=== PATIENT | female | born 1960 ===

== ENCOUNTER 2018-04-13 12:53 | Emergency (ER) | payer MEDICAID ==
[2018-04-13 13:00] VITALS: BP 154/89; PULSE 97; TEMP 98.4; O2SAT 100
--- NOTE | 2018-04-13 14:22 | C.PDOC ---
History Of Present Illness 57 y/o female comes in for evaluation of right > left eye irritation, associated with FB sensation in the right eye, gradually developing over the past week. She denies any direct injury to the eye. After rubbing the eye, the pain worsened. Patient does wear contact lenses. She now describes worsening right eye pain and photophobia since yesterday. Denies any headache, dizziness, floaters, eye discharge, or other complaints. Time Seen by Provider: 04/13/18 13:43 Chief Complaint (Nursing): Eye Problem History Per: Patient History/Exam Limitations: no limitations Onset/Duration Of Symptoms: Days Current Symptoms Are (Timing): Still Present Past Medical History Reviewed: Historical Data, Nursing Documentation, Vital Signs Vital Signs: Last Vital Signs Temp 98.4 F 04/13/18 12:57 Pulse 97 H 04/13/18 12:57 Resp 20 04/13/18 14:37 BP 154/89 H 04/13/18 12:57 Pulse Ox 100 04/13/18 16:01 - Medical History PMH: Asthma, Depression, Hypercholesterolemia, Schizophrenia - [facility] Procedures TETANUS TOXOID ADMINIST (02/05/15) Family History: States: Unknown Family Hx - Social History Hx Tobacco Use: Yes Hx Alcohol Use: Yes Hx Substance Use: No - Immunization History Hx Tetanus Toxoid Vaccination: No Hx Influenza Vaccination: No (REFUSED) Hx Pneumococcal Vaccination: No (REFUSED) Review Of Systems Except As Marked, All Systems Reviewed And Found Negative. Eyes: Positive for: Pain, Redness, Other (R eye FB sensation) ENT: Negative for: Ear Discharge, Nose Discharge, Mouth Pain, Throat Pain Cardiovascular: Negative for: Chest Pain Respiratory: Negative for: Cough, Shortness of Breath, Wheezing Gastrointestinal: Negative for: Nausea, Vomiting, Abdominal Pain, Diarrhea Musculoskeletal: Negative for: Neck Pain, Back Pain Neurological: Positive for: Other (Photophobia). Negative for: Weakness, Numbness, Headache, Dizziness Physical Exam - Physical Exam Appears: Well, Non-toxic, No Acute Distress Skin: Normal Color, Warm Head: Normacephalic Eye(s): bilateral: PERRL, EOMI (no pain or limitation on extraocular movement), right: Other (mild conjunctival injection, small fluoresceine uptake at 6 oc' clock, no corneal FB. No perorbital edema or erythema) Ear(s): Bilateral: Normal Nose: No Flaring, No Discharge, No Deformity, No Tenderness Oral Mucosa: Moist Throat: No Erythema, No Drooling Neck: No Midline Cervical Tenderness, No Paracervical Tenderness, No Step Off Deformity, Supple Neurological/Psych: Oriented x3, Normal Speech, Normal Motor, Normal Sensation, Normal Reflexes ED Course And Treatment O2 Sat by Pulse Oximetry: 100 (RA) Pulse Ox Interpretation: Normal Progress Note: On re-eval, pt is afebrile, hemodynamicalys table. NOn-toxic. Right eye: exam c/w mild fluoresceine uptake, no evidence of corneal FB. no pain or limitation on extraocular movement. No periorbital edema or erythema. VA: R20/100, L20/100, B/L 20/70 w/o correction. ENT: no acute findings. neck; Supple. Neuorlogicaly intact. Pt advise, eye patch applied. Pt ref. to f/u with Opht in 1-2 days for re-eavl. return to ED if any worsening or new changes. Disposition Counseled Patient/Family Regarding: Diagnosis, Need For Followup, Rx Given - Disposition Referrals: Rocky Simental MD [Staff Provider] - Disposition: HOME/ ROUTINE Disposition Time: 14:21 Condition: STABLE Additional Instructions: Eye patch for 1 week Take medication as prescribed Follow up with Ophthalmology in 2-3 days for re-evaluation. Return if any new changes. Prescriptions: Neomycin/Polymyxin/Dexamethaso [Dexamethasone/Neomycin/Polymyxin 5 Ml] 1 drop BOTHEYES TID #1 bottle Instructions: Corneal Abrasion Forms: [facility] (Indonesian), Work Excuse - POA Present On Arrival: None - Clinical Impression Clinical Impression: Corneal abrasion - PA / BOOM MASTER / Resident Statement MD/DO has reviewed & agrees with the documentation as recorded. - Scribe Statement The provider has reviewed the documentation as recorded by the Scribe (Chrissie Murillo) All medical record entries made by the Scribe were at my direction and personally dictated by me. I have reviewed the chart and agree that the record accurately reflects my personal performance of the history, physical exam, medical decision making, and the department course for this patient. I have also personally directed, reviewed, and agree with the discharge instructions and disposition.
[2018-04-13 14:38] VITALS: RESP 20
== END 2018-04-13 14:37 | disposition home or self-care (01) ==
LOC: C.ER 12:53
DX: S05.01XA Injury of conjunctiva and corneal abrasion without foreign body, right eye, initial encounter (principal); X58.XXXA Exposure to other specified factors, initial encounter

== ENCOUNTER 2018-06-12 20:59 | Emergency (ER) | payer MEDICAID ==
[2018-06-12] MEDS ORDERED: Sodium Chloride 0.9% 1,000 ML IV ONE (21:08)
[2018-06-12] MEDS ORDERED: DiphenhydrAMINE 50 mg/ml Inj IVP STA (21:09)
[2018-06-12] MEDS ORDERED: DiphenhydrAMINE 50 mg/ml Inj ONE (21:12)
[2018-06-12 21:13] VITALS: TEMP 99.1
--- NOTE | 2018-06-12 21:16 | C.PDOC ---
History Of Present Illness 58 y/o female BIB EMS complaining of sever itch and burning of scalp for four days ago. Patient states the itch began after using hair dye. Post hair dye, she experienced facial edema and swelling of both eyelids. She denies any throat welling or difficulty breathing Time Seen by Provider: 06/12/18 21:04 Chief Complaint (Nursing): Allergic Reaction History/Exam Limitations: no limitations Onset/Duration Of Symptoms: Days (4 days ago) Current Symptoms Are (Timing): Still Present Associated Symptoms: Swelling (facial edema and eyelid swelling ) Past Medical History Vital Signs: Last Vital Signs Temp 99.1 F 06/12/18 21:07 Pulse 88 06/12/18 22:15 Resp 14 06/12/18 22:15 BP 158/84 H 06/12/18 22:15 Pulse Ox 96 06/12/18 23:03 - Medical History PMH: Asthma, Depression, Hypercholesterolemia, Schizophrenia - [facility] Procedures TETANUS TOXOID ADMINIST (02/05/15) Family History: States: Unknown Family Hx - Social History Hx Tobacco Use: Yes Hx Alcohol Use: Yes Hx Substance Use: No - Immunization History Hx Tetanus Toxoid Vaccination: No Hx Influenza Vaccination: No (REFUSED) Hx Pneumococcal Vaccination: No (REFUSED) Review Of Systems Except As Marked, All Systems Reviewed And Found Negative. Constitutional: Negative for: Fever Eyes: Positive for: Eyelid Inflammation Cardiovascular: Positive for: Edema (facial edema) Respiratory: Negative for: Shortness of Breath, Wheezing, Other (throat swelling ) Skin: Negative for: Rash Physical Exam - Physical Exam Appears: Non-toxic, No Acute Distress Skin: Other (facial edema ) Head: Atraumatic, Normacephalic Eye(s): bilateral: PERRL, EOMI, Eyelid Inflammation Ear(s): Bilateral: Normal Nose: Normal Oral Mucosa: Moist Tongue: No Swelling Lips: No Swelling Throat: Normal (no swelling ) Neck: Normal ROM, Supple Chest: Symmetrical Cardiovascular: Rhythm Regular Respiratory: Normal Breath Sounds, No Rales, No Rhonchi, No Wheezing Gastrointestinal/Abdominal: Normal Exam, Soft, No Tenderness Extremity: Normal ROM Extremity: Bilateral: Atraumatic Pulses: Left Dorsalis Pedis: Normal, Right Dorsalis Pedis: Normal Neurological/Psych: Oriented x3 Gait: Steady ED Course And Treatment O2 Sat by Pulse Oximetry: 96 (RA) Pulse Ox Interpretation: Normal Medical Decision Making Medical Decision Making: Impression: 58 y/o female with facial edema, swelling of both eyelids, and severe itch/ burning of scalp Plan: --IV fluids --Benadryl 50 mg IV --Pepcid 20 mg IV -- SOLU-Medrol 125 mg IV 23:02 Reevaluation: Patient feels better and swelling in both eyes has reduced significantly. Disposition Doctor Will See Patient In The: Hospital Counseled Patient/Family Regarding: Diagnosis - Disposition Referrals: [facility] [Outside] Disposition: HOME/ ROUTINE Disposition Time: 01:33 Condition: IMPROVED Prescriptions: DiphenhydrAMINE [Benadryl] 25 mg PO Q6 #20 cap Famotidine [Pepcid] 20 mg PO BID #20 tab Methylprednisolone [Medrol Dose Pack (21 tabs)] 4 mg PO DAILY #21 mg Instructions: Brodyes (DC) Forms: [facility] (Japanese), Gen Discharge Inst Vietnamese Print Language: ARMENIAN - POA Present On Arrival: None - Clinical Impression Clinical Impression: Allergic reaction - Scribe Statement The provider has reviewed the documentation as recorded by the Scribe (Emmanuelle Morrissey) Provider Attestation: All medical record entries made by the Scribe were at my direction and personally dictated by me. I have reviewed the chart and agree that the record accurately reflects my personal performance of the history, physical exam, medical decision making, and the department course for this patient. I have also personally directed, reviewed, and agree with the discharge instructions and disposition.
[2018-06-12 22:16] VITALS: PULSE 88; RESP 14
[2018-06-12 22:17] VITALS: BP 158/84
[2018-06-12 23:03] VITALS: O2SAT 96
== END 2018-06-13 01:58 | disposition home or self-care (01) ==
LOC: C.ER 20:59
DX: T78.40XA Allergy, unspecified, initial encounter (principal)
CPT/HCPCS: 96361; 96374; 96375; 99284; J1200; J2930; J7030

== ENCOUNTER 2018-06-13 16:00 | Emergency (ER) | payer MEDICAID ==
[2018-06-13 16:07] VITALS: BMI 14.6
[2018-06-13] MEDS ORDERED: Iodixanol 320 mg/ml 150 ml Bottle IV ONE (16:19)
--- NOTE | 2018-06-13 16:27 | CT ---
Date of service: 06/13/2018 PROCEDURE: CT HEAD WITHOUT CONTRAST. HISTORY: Code Stroke COMPARISON: None available. TECHNIQUE: Axial computed tomography images were obtained through the head/brain without intravenous contrast. Radiation dose: Total exam DLP = 742.27 mGy-cm. This CT exam was performed using one or more of the following dose reduction techniques: Automated exposure control, adjustment of the mA and/or kV according to patient size, and/or use of iterative reconstruction technique. FINDINGS: HEMORRHAGE: No intracranial hemorrhage. BRAIN: There is focal low-attenuation in the left posterior frontal and anterior parietal lobes. There is no mass, mass effect or abnormal extra-axial fluid collection. VENTRICLES: There is mild age-related global parenchymal volume loss and proportionate enlargement of the ventricles and cortical sulci. CALVARIUM: The skull base and calvarium are normal. PARANASAL SINUSES: Predominantly clear. MASTOID AIR CELLS: Predominantly clear. OTHER FINDINGS: None. IMPRESSION: 1. Findings are concerning for acute left MCA territory infarction involving the left posterior frontal an anti parietal lobes. 2. Mild age-related global parenchymal volume loss. Critical findings were discussed with Dr. Dwain Lemus on 06/13/2018 and 4:20 p.m.
--- NOTE | 2018-06-13 16:27 | C.PDOC ---
History Of Present Illness 58 y/o female brought in by ambulance for change in mental status, right-sided facial droop, right arm flaccid. Patient was evaluated here last night for contact dermatitis due to a hair dye and irritation of the scalp, and also had severe edema to bilateral eyes at that time. She was discharged home around 1: 30 AM. Last seen well by her son at 11:00am. Patient was ambulatory then without facial droop. At that time she was complaining of a strange sensation on the right arm and decreased vision to left eye as per son. At approximately 1 :00pm the patient called a friend, claiming she did not feel well, but was incoherent on the phone with slurred speech. On arrival patient has severe right facial droop not involving the forehead, with preferential right gaze, and right arm flaccid. Patient was immediately evaluated and Code Stroke initiated. Time Seen by Provider: 06/13/18 16:15 Chief Complaint (Nursing): Weakness/Neurological Deficit History Per: Patient History/Exam Limitations: clinical condition (aphasic on arrival) Onset/Duration Of Symptoms: Hrs Current Symptoms Are (Timing): Still Present Past Medical History Vital Signs: Last Vital Signs Temp Pulse 69 06/13/18 18:10 Resp 26 H 06/13/18 18:10 BP 169/88 H 06/13/18 18:10 Pulse Ox 99 06/13/18 18:34 - Medical History PMH: Asthma, Depression, Hypercholesterolemia, Schizophrenia - [facility] Procedures TETANUS TOXOID ADMINIST (02/05/15) Family History: States: Unknown Family Hx - Social History Hx Tobacco Use: Yes Hx Alcohol Use: Yes Hx Substance Use: No - Immunization History Hx Tetanus Toxoid Vaccination: No Hx Influenza Vaccination: No (REFUSED) Hx Pneumococcal Vaccination: No (REFUSED) Review Of Systems Review Of Systems: ROS cannot be obtained secondary to pt's inabilty to answer questions. Neurological: Positive for: Weakness (right arm), Change in Speech (aphasia), Other (right facial droop) Physical Exam - Physical Exam Appears: Other (Awake, not answering questions) Skin: Normal Color, Warm, No Rash Head: Normacephalic, Other (Severe right facial droop) Eye(s): bilateral: PERRL, EOMI, Other (preferential right gaze noted) Oral Mucosa: Moist Neck: Normal ROM Chest: Symmetrical Cardiovascular: Rhythm Regular, No Murmur Respiratory: Normal Breath Sounds, No Rales, No Rhonchi, No Wheezing Gastrointestinal/Abdominal: Soft, No Tenderness, No Distention Back: Normal Inspection Extremity: Bilateral: Normal Color And Temperature Pulses: Left Radial: Normal, Right Radial: Normal Neurological/Psych: No Normal Motor (RLE 3/5 strength, RUE flaccid), Expressive Aphasia, Receptive Aphasia, Other (Garbled speech, echolalia) Gait: Unable To Assess Other Neurological Findings: Facial Palsy, No Forehead Sparing ED Course And Treatment - Laboratory Results Result Diagrams: 06/13/18 16:50 06/13/18 16:50 Lab Interpretation: Normal ECG: Interpreted By Me, Viewed By Me ECG Rhythm: Sinus Rhythm Rate From EC O2 Sat by Pulse Oximetry: 99 Pulse Ox Interpretation: Normal - Radiology CXR: Interpreted by Me CXR Interpretation: Yes: No Acute Disease - CT Scan/US CT Head Other Rad Studies (CT/US): Read By Radiologist, Radiology Report Reviewed CT/US Interpretation: IMPRESSION: 1. Findings are concerning for acute left MCA territory infarction involving the left posterior frontal an anti parietal lobes. 2. Mild age-related global parenchymal volume loss. Critical findings were discussed with Dr. Dwain Lemus on 06/13/2018 and 4:20 p.m. CTA Neck/Head Other Rad Studies (CT/US): Read By Radiologist, Radiology Report Reviewed CT/US Interpretation: IMPRESSION: 1. Complete occlusion of the cervical segment of the left internal carotid artery from its origin to the skullbase. 2. Complete occlusion of majority of the petrous segment of the left internal carotid artery . Mild flow related enhancement distally with asymmetric small caliber of the left cavernous carotid and supraclinoid segments of the internal carotid artery. 3. Mild asymmetric small caliber of the left M1 segment with attenuation of distal branches. 4. No evidence of hemodynamically significant stenosis in the right internal carotid artery. 5. Patent bilateral vertebral arteries. Reevaluation Time: 18:16 (mild improvement in speech, eye direction. Remains R arm flaccid) Reassessment Condition: Improved Critical Care Time - Critical Care Note Total Time (in mins): 90 Documented critical care: time excludes all time spent performing seperately billable procedures. NIHSS Stroke Scale 2 - Date/Time Evaluation Performed Date Performed: 06/13/18 Time Performed: 16:00 - How Severe is the Stroke Level of Consciousness: 0=Alert LOC to Questions: 2=Neither correct LOC to commands: 2=Neither correct Best Gaze: 1=Partial gaze palsy Visual: 0=No visual loss Facial: 3=Complete unilateral paralysis Motor Arm - Left: 0=No drift Motor Arm - Right: 4=No movement Motor Leg - Left: 0=No drift Motor Leg - Right: 1=Drift before 5 sec Limb Ataxia: 0=Absent Sensory: 0=Normal Best Language: 3=Mute Dysarthia: 2=Severe, near unintelligible or worse Extinction & Inattention (Neglect): 0=Normal, no object Score: 18 rTPA Inclusion/Exclusion - Refusal of Treatment Patient Refused Treatment: No - Inclusion Criteria for Altepase Patient is 18 years or Older: Yes The Clinical Diagnosis of Ischemic Stroke That is Causing a Potentially Disabling Neurological Deficit: Yes Time of Onset is Well Established to be Less Than 270 Minute Before Treatment Would Begin: No Risk/Benefit Discussed With Patient/Family Member Present: No Medical Decision Making Medical Decision Makin: Code Stroke called 1615: d/w Radiology; Code Stroke CT: suspect L MCA CVA 1630: d/w Radiology; Code Stroke CTA: L Internal Carotid Artery Occlusion (LICA) , good collateral flow [place] [facility] [place] 1645: d/w Dr Thorpe: Neurology- 1700: d/w Dr. Brown- Neurology- Agrees with ASA CO, Integralin IV, permissive HTN, IV fluid bolus, will arrange acceptance for transfer 1715: Pt to be transferred to [facility] 1805: d/w [facility]-accepted for transfer s/s of L MCA CVA but LMCA appears to have good flow, LICA occluded. Neurointervention @ [facility] Disposition Doctor Will See Patient In The: Hospital Counseled Patient/Family Regarding: Studies Performed, Diagnosis - Disposition Disposition: Trans to Other Acute Care Hosp Disposition Time: 18:20 Condition: FAIR Forms: [facility] (Norwegian) - Clinical Impression Clinical Impression: Acute ischemic stroke - Scribe Statement The provider has reviewed the documentation as recorded by the Scribe (Chrissie Murillo) Provider Attestation: All medical record entries made by the Scribe were at my direction and personally dictated by me. I have reviewed the chart and agree that the record accurately reflects my personal performance of the history, physical exam, medical decision making, and the department course for this patient. I have also personally directed, reviewed, and agree with the discharge instructions and disposition.
[2018-06-13 16:56] LABS: BASO % 0.4 % (0.0-2.0); EOS % 0.1 % (0.0-4.0); HEMOGLOBIN 12.2 g/dL (11.0-16.0); LYMPH # 0.6 K/uL (1.0-4.3); LYMPH % 7.3 % (20.0-40.0); MEAN CORPUSCULAR HGB CONC 34.8 g/dL (33.0-37.0); MONO # 0.6 K/uL (0.0-0.8); MONO % 6.5 % (0.0-10.0); NEUT # 7.7 K/uL (1.8-7.0); NEUT % 85.7 % (50.0-75.0); PLATELET COUNT 269 K/uL (130-400); RBC 3.71 Mil/uL (3.80-5.20); WHITE BLOOD COUNT 8.9 K/uL (4.8-10.8)
--- NOTE | 2018-06-13 16:56 | CT ---
PROCEDURE: CTA HEAD AND NECK WITH CONTRAST HISTORY: R facial droop, R arm flaccid COMPARISON: None available. TECHNIQUE: Initial noncontrast head CT was performed. Subsequently, CT angiogram of the head and neck were performed after the intravenous administration of 80 mL of Omnipaque 350. Contiguous 1.5mm thick images were obtained in the axial plane of the neck. 2-D coronal and sagittal MPR images were obtained. Imaging postprocessing was performed with 3-D images also obtained. A delayed contrast head CT was also obtained. This CT exam was performed using one or more of the following dose reduction techniques: Automated exposure control, adjustment of the mA and/or kV according to patient size, and/or use of iterative reconstruction technique. Contrast dose: 100 mL Omnipaque 350 Radiation dose: Total exam DLP = 374.94 mGy-cm. FINDINGS: HEAD: Right: The intracranial internal carotid artery, and anterior and middle cerebral arteries are widely patent. Left: There is complete occlusion of the majority of petrous segment of the internal carotid artery with flow related enhancement in the distal most petrous segment which is small in caliber. There is asymmetric small caliber of the cavernous carotid and supraclinoid segments. There is also complete occlusion of the internal carotid artery at the skullbase. There is asymmetric narrowing of the left M1 segment and mild attenuation of the distal sylvian branches. Posterior circulation: The visualized intracranial vertebral arteries, basilar artery and posterior cerebral arteries are widely patent. There is no endoluminal filling defect to suggest thrombus. There is no intracranial saccular aneurysm. There is no abnormal enhancement on the postcontrast CT. NECK: There is a three vessel aortic arch. There is no stenosis at the origins of the great vessels at the level of the aortic arch. Right Carotid: On the right, the common carotid, internal carotid and external carotid arteries are widely patent. There are mild atherosclerotic calcifications in the carotid bulb. There is no hemodynamically significant stenosis in the internal carotid artery by NASCET criteria. Left Carotid: On the left, the common carotid, internal carotid and external carotid arteries are widely patent. There are advanced atherosclerotic calcifications in the carotid bulb. There is complete occlusion of the internal carotid artery from its origin to the skullbase. The vertebral arteries are widely patent. The visualized soft tissues of the neck are normal. The visualized brain and cervical spine are within normal limits. There is paraseptal and centrilobular emphysema in the visualized lungs. IMPRESSION: 1. Complete occlusion of the cervical segment of the left internal carotid artery from its origin to the skullbase. 2. Complete occlusion of majority of the petrous segment of the left internal carotid artery . Mild flow related enhancement distally with asymmetric small caliber of the left cavernous carotid and supraclinoid segments of the internal carotid artery. 3. Mild asymmetric small caliber of the left M1 segment with attenuation of distal branches. 4. No evidence of hemodynamically significant stenosis in the right internal carotid artery. 5. Patent bilateral vertebral arteries.
--- NOTE | 2018-06-13 16:57 | RAD ---
Date of service: 06/13/2018 HISTORY: Code Stroke COMPARISON: Chest radiograph dated 11/20/2016. FINDINGS: LUNGS: No active pulmonary disease. PLEURA: No significant pleural effusion identified, no pneumothorax apparent. CARDIOVASCULAR: Normal. OSSEOUS STRUCTURES: Unchanged. VISUALIZED UPPER ABDOMEN: Normal. OTHER FINDINGS: None. IMPRESSION: No active disease.
[2018-06-13] MEDS ORDERED: Nitroglycerin 2% Ointment Foilpak UD TOP STA (16:58)
[2018-06-13 17:03] LABS: INR 1.3
[2018-06-13] MEDS ORDERED: Sodium Chloride 0.9% 1,000 ML IV ONE (17:03)
[2018-06-13] MEDS ORDERED: Nitroglycerin 2% Ointment Foilpak UD TOP ONE (17:06)
[2018-06-13 17:07] LABS: ALB/GLOB RATIO 1.3 (1.0-2.1); ALT/SGPT 25 U/L (9-52); AST/SGOT 26 U/L (14-36); BLOOD UREA NITROGEN 11 mg/dL (7-17); CALCIUM 9.3 mg/dl (8.6-10.4); GFR AFRICAN-AMERICAN > 60; GFR NON-AFRICAN AMERICAN > 60; HDL CHOLESTEROL 48 mg/dL (30-70)
[2018-06-13] MEDS ORDERED: Sodium Chloride 0.9% 1,000 ML ONE (17:10)
[2018-06-13] MEDS ORDERED: Eptifibatide 0.75 mg/ml 75 MG/100 ML BOTTLE IV SCH (17:15)
[2018-06-13 17:18] LABS: LDL CHOLESTEROL 137 mg/dL (0-129)
[2018-06-13] MEDS ORDERED: Eptifibatide 0.75 mg/ml 75 MG/100 ML BOTTLE IV ONE (17:24)
[2018-06-13 17:27] LABS: BANDS 6 % (0-2); HYPOCHROMIC SLIGHT; LYMPHOCYTE 5 % (20-40); MICROCYTOSIS SLIGHT; MONOCYTE 7 % (0-10); NEUTROPHIL 82 % (50-75); PLATELET ESTIMATE NORMAL (NORMAL); SCHISTOCYTES SLIGHT; TOTAL CELLS COUNTED 100
[2018-06-13 17:35] VITALS: PULSE 69
[2018-06-13 18:13] VITALS: BP 169/88; RESP 26
[2018-06-13 18:32] VITALS: O2SAT 99
--- NOTE | 2018-06-13 18:38 | CP.PCM.CON ---
History of Present Illness - History of Present Illness History of Present Illness: Tele-Stroke Consultation Note: This is a telehealth visit being conducted via [facility] bi-directional video conference. Video IN: 4:22 PM Video Out: 4:29 PM Mrs. Garcia is a 58-year-old woman with a past medical history of HTN, who presented to the ED with right side weakness, aphasia and confusion. She was last seen normal by her family at 11 AM (5.5 hours ago). CT scan of the head did not show any acute findings. CTA of the head/neck showed a left ICA occlusion, but left MCA was perfused. On exam, she had an NIHSS of 16. She was not a candidate for IV tPA due to being outside the 4.5 hour time window. Neurointerventional was consulted for possible thrombectomy. Review of Systems - Review of Systems All systems: reviewed and no additional remarkable complaints except Past Patient History - Past Social History Smoking Status: Light Smoker < 10 Cigarettes Daily - CARDIAC Hx Hypercholesterolemia: Yes - PULMONARY Hx Asthma: Yes - PSYCHIATRIC Hx Depression: Yes Hx Schizophrenia: Yes Hx Substance Use: No - SURGICAL HISTORY Hx Surgeries: No - ANESTHESIA Hx Anesthesia: No Hx Anesthesia Reactions: No Meds Allergies/Adverse Reactions: Allergies Allergy/AdvReac Type Severity Reaction Status Date / Time No Known Allergies Allergy Verified 06/13/18 16:43 - Medications Medications: Current Medications Eptifibatide (Integrilin) 75 mg in 100 mls @ 1.616 mls/hr IV .Q24H TORIBIO PRN Reason: 0.5 MCG/KG/MIN Last Admin: 06/13/18 17:31 Dose: 1.616 mls/hr Physical Exam - Neurological Exam Neurological exam: Altered, CN II-XII Intact Additional comments: Right arm flaccid, right leg 2/5 in strength, sensation was diminished on the right, she was aphasic, right facial droop, followed some simple commands. NIHSS was 16. Results - Vital Signs Recent Vital Signs: Last Vital Signs Temp Pulse 69 06/13/18 18:10 Resp 26 H 06/13/18 18:10 BP 169/88 H 06/13/18 18:10 Pulse Ox 100 06/13/18 18:10 - Labs Result Diagrams: 06/13/18 16:50 06/13/18 16:50 Labs: Laboratory Results - last 24 hr 06/13/18 06/13/18 06/13/18 16:05 16:50 16:50 WBC 8.9 D RBC 3.71 L Hgb 12.2 Hct 35.2 MCV 95.0 D MCH 33.0 H MCHC 34.8 RDW 14.0 Plt Count 269 D MPV 8.0 Neut % (Auto) 85.7 H Lymph % (Auto) 7.3 L [place] % (Auto) 6.5 Eos % (Auto) 0.1 Baso % (Auto) 0.4 Neut # (Auto) 7.7 H Lymph # (Auto) 0.6 L [place] # (Auto) 0.6 Eos # (Auto) 0.0 Baso # (Auto) 0.0 Neutrophils % (Manual) 82 H Band Neutrophils % 6 H Lymphocytes % (Manual) 5 L Monocytes % (Manual) 7 Platelet Estimate Normal Hypochromasia (manual) Slight Microcytosis (manual) Slight Schistocytes Slight PT 14.0 H INR 1.3 APTT 32 Sodium Potassium Chloride Carbon Dioxide Anion Gap BUN Creatinine Est GFR ( Amer) Est GFR (Non-Af Amer) POC Glucose (mg/dL) 168 H Random Glucose Hemoglobin A1c Calcium Total Bilirubin AST ALT Alkaline Phosphatase Troponin I Total Protein Albumin Globulin Albumin/Globulin Ratio Triglycerides Cholesterol LDL Cholesterol Direct HDL Cholesterol Blood Type Antibody Screen 06/13/18 06/13/18 06/13/18 16:50 16:50 16:50 WBC RBC Hgb Hct MCV MCH MCHC RDW Plt Count MPV Neut % (Auto) Lymph % (Auto) [place] % (Auto) Eos % (Auto) Baso % (Auto) Neut # (Auto) Lymph # (Auto) [place] # (Auto) Eos # (Auto) Baso # (Auto) Neutrophils % (Manual) Band Neutrophils % Lymphocytes % (Manual) Monocytes % (Manual) Platelet Estimate Hypochromasia (manual) Microcytosis (manual) Schistocytes PT INR APTT Sodium 137 Potassium 4.0 Chloride 100 Carbon Dioxide 26 Anion Gap 15 BUN 11 Creatinine 0.6 L Est GFR ( Amer) > 60 Est GFR (Non-Af Amer) > 60 POC Glucose (mg/dL) Random Glucose 145 H Hemoglobin A1c 5.7 Calcium 9.3 Total Bilirubin 0.3 AST 26 ALT 25 Alkaline Phosphatase 79 Troponin I < 0.0120 Total Protein 7.1 Albumin 4.0 Globulin 3.1 Albumin/Globulin Ratio 1.3 Triglycerides 70 Cholesterol 200 H LDL Cholesterol Direct 137 H HDL Cholesterol 48 Blood Type O POSITIVE Antibody Screen Negative Assessment & Plan (1) Acute ischemic stroke Assessment and Plan: The patient is unable to swallow and therefor cannot have antiplatelet agents. We will start her on low dose integrillin, keep her BP elevated (permissive HTN , only treat BP that is higher than 220/110 mm Hg), bolus with 1000 mL of NS now and continue 100 mL/hr, continue Q30 minute neuro-checks, transfer to [place] for possible carotid stent or thrombectomy based on angiogram. Thank you. Status: Acute Priority: High
--- NOTE | 2018-06-14 15:22 | CARD ---
APPROVED REPORT Date of service: 06/13/2018 EKG Measurement Heart [id number] <Conclusion> Normal sinus rhythm Normal ECG
== END 2018-06-13 18:31 | disposition short-term general hospital (02) ==
LOC: C.ER 16:00
DX: I63.9 Cerebral infarction, unspecified (principal); R29.718 NIHSS score 18; J45.909 Unspecified asthma, uncomplicated; E78.00 Pure hypercholesterolemia, unspecified; F17.210 Nicotine dependence, cigarettes, uncomplicated
CPT/HCPCS: 70450; 70496; 70498; 71045; 80053; 80061; 82948; 83036; 84484; 85025; 85610; 85730; 86850; 86900; 93005; 99285; J1327; J7030; Q9967

== ENCOUNTER 2019-02-02 07:59 | Outpatient (CLI) | payer MEDICAID | END 2019-02-02 08:00 | disposition home or self-care (01) | LOC: C.MAMMO 08:00 | DX: Z12.31 Encounter for screening mammogram for malignant neoplasm of breast (principal) ==

== ENCOUNTER 2019-02-17 12:24 | Outpatient (CLI) | payer MEDICAID | END 2019-02-17 12:25 | disposition home or self-care (01) | LOC: C.CTH 12:24 | DX: I63.232 Cerebral infarction due to unspecified occlusion or stenosis of left carotid arteries (principal) ==